=== PATIENT | female | born 1990 | race Caucasian/White ===

== ENCOUNTER 2018-08-18 06:15 | Inpatient (IN) | payer BC, OTHER ==
[2018-08-18] MEDS ORDERED: LIDOCAINE 0.5% (PF) 5 MG/ML (50 ML SDV) SQ PRN (06:38)
[2018-08-18] MEDS ORDERED: TERBUTALINE 1 MG/ML VIAL SQ PRN (06:38)
[2018-08-18] MEDS ORDERED: METHYLERGONOVINE 0.2 MG/ML 1 ML AMP IM PRN (06:38)
[2018-08-18] MEDS ORDERED: CARBOPROST TROMETHAMINE 250 MCG/ML 1 ML AMP IM PRN (06:38)
[2018-08-18] MEDS ORDERED: OXYTOCIN 10 UNIT/ML 1 ML VIAL IM PRN (06:38)
[2018-08-18 06:58] VITALS: BMI 48.2
[2018-08-18] MEDS: LACTATED RINGERS 1,000 ML IV SCH ×3 (07:07→22:40)
[2018-08-18 07:15] LABS: Anisocytosis Slight; Basophils % (A) 0 %; Eosinophils # (A) 0.1 k/uL (0-0.7); Eosinophils % (A) 1 %; HCT 38.4 % (34.0-46.0); HGB 12.3 gm/dL (11.4-16.0); Lymphocytes # (A) 2.3 k/uL (1.0-4.8); Lymphocytes % (A) 22 %; MCH 26.3 pg (25.0-35.0); MCV 82.1 fL (80.0-100.0); Mean Platelet Volume 6.8; Monocytes # (A) 0.5 k/uL (0-1.0); Monocytes % (A) 5 %; Neutrophils # (A) 7.3 k/uL (1.3-7.7); Neutrophils % (A) 70 %; Platelet Count 250 k/uL (150-450); RBC 4.67 m/uL (3.80-5.40); RDW 16.2 % (11.5-15.5); WBC 10.4 k/uL (3.8-10.6)
--- NOTE | 2018-08-18 07:37 | P.HPOB ---
History of Present Illness H&P Date: 08/18/18 This is a 28-year-old white female 2 para 1001 EDC 08/25/2018 at 39 weeks gestation. Patient presents for an induction, planning . She is having irregular uterine contractions. Fetus is been active throughout the . She denies vaginal bleeding or fluid leakage. Past surgical history significant for 2014, low transverse incision, wisdom teeth extracted. Past medical history significant for seasonal ALLERGIES, history of kidney stones, and HSV infections. Current medications Valtrex 500 mg daily, albuterol inhaler as needed, labetalol 100 mg twice daily, vitamin daily. ALLERGIES include codeine, and penicillins to both of which she reports a rash. Family history significant for atrial fibrillation, heart failure, gout, arthritis. Social history patient is , she is a former tobacco smoker, she denies alcohol or drug use or history is significant for blood type A+, rubella status immune. Positive group strep cultures, negative urine culture. HIV testing, urine screen, gonorrhea Chlamydia cultures, VDRL all negative. One-hour Glucola 105. Mild -induced hypertension. Liver enzymes within normal limits. On exam this is a pleasant white female who is 5 foot 1 inch, 255 pounds, blood pressure 126/89. Vital signs are stable and she is afebrile. The general physical exam is within normal limits. The chest is clear in all mejia. Extremities reveal trace edema. Cervix is 3-4 cm dilated, 60-70% effaced, -2 station, vertex presentation, soft and anterior. Artificial amniorrhexis reveals clear fluid. heart rate is consistent with reactive NST. She is having spontaneous contractions approximately every 6 minutes apart. Impression: 39 week intrauterine . History of mild PIH, blood pressure normal. History of previous , planning . Risks and benefits all discussed in detail. Plan: Clindamycin prophylaxis for positive group B strep status. Close maternal and surveillance. Oxytocin per hospital protocol. Anticipate normal spontaneous vaginal delivery, or vaginal after . Review of Systems Constitutional: Reports as per HPI Past Medical History Past Medical History: Asthma Additional Past Medical History / Comment(s): HSV History of Any Multi-Drug Resistant Organisms: None Reported Past Surgical History: Section Additional Past Surgical History / Comment(s): Wisom teeth Past Anesthesia/Blood Transfusion Reactions: No Reported Reaction Past Psychological History: No Psychological Hx Reported Smoking Status: Never smoker Past Alcohol Use History: None Reported Past Drug Use History: None Reported - Past Family History Father Family Medical History: Hypertension Medications and Allergies Home Medications Medication Instructions Recorded Confirmed Type Albuterol Inhaler [Ventolin Hfa 1 inhalation PO ONCE 08/18/18 08/18/18 History Inhaler] Labetalol HCl 100 mg PO BID 08/18/18 08/18/18 History valACYclovir [Valtrex] 1 tab PO ONCE 08/18/18 08/18/18 History Allergies Allergy/AdvReac Type Severity Reaction Status Date / Time penicillin G Allergy Unknown Verified 08/18/18 06:34 Childhood Exam Vital Signs Temp Pulse Resp BP Pulse Ox 08/18/18 06:50 96.5 F L 92 16 126/89 98 Intake and Output 08/17/18 08/18/18 08/18/18 22:59 06:59 14:59 Other: Weight 115.666 kg See dictation under HPI please Results Result Diagrams: 08/18/18 06:53 Abnormal Lab Results - Last 24 Hours (Table) 08/18/18 Range/Units 06:53 RDW 16.2 H (11.5-15.5) % Assessment and Plan Assessment: 39 week intrauterine , previous , history of HSV with no lesions at this time. History of asthma, lung mejia clear. Positive group B strep cultures. Plan: Clindamycin prophylaxis. Oxytocin per hospital protocol. Close maternal and surveillance. All risks and benefits of discussed in detail. Anticipate vaginal delivery. Time with Patient: Greater than 30
[2018-08-18] MEDS ORDERED: CLINDAMYCIN 900 MG in DEXTROSE 5% IN WATER 50 ML IVPB SCH ×2 (08:00)
[2018-08-18] MEDS: BUTORPHANOL 1 MG/ML 1 ML VIAL IV PRN ×2 (10:23→18:41)
[2018-08-18] MEDS ORDERED: diphenhydrAMINE 50 MG/ML 1 ML VIAL IVP PRN ×2 (13:00)
[2018-08-18] MEDS ORDERED: diphenhydrAMINE 50 MG CAP PO PRN (13:00)
[2018-08-18] MEDS ORDERED: OXYTOCIN 20 UNITS/1000 ML NS 1,000 ML IV SCH (13:00)
[2018-08-18] MEDS ORDERED: ZOLPIDEM 5 MG TAB PO PRN (13:00)
[2018-08-18] MEDS ORDERED: ACETAMINOPHEN TAB 325 MG TAB PO PRN (13:00)
[2018-08-18] MEDS ORDERED: SIMETHICONE 80 MG CHEWABLE PO PRN (13:00)
[2018-08-18] MEDS ORDERED: WITCH HAZEL 1 EACH MED..PAD TOPICAL PRN (13:00)
[2018-08-18] MEDS ORDERED: diphenhydrAMINE ELIXIR 25 MG/10 ML CUP PO PRN (13:00)
[2018-08-18] MEDS ORDERED: diphenhydrAMINE 25 MG CAP PO PRN (13:00)
[2018-08-18] MEDS ORDERED: HYDROCORTISONE 2.5% RECTAL CREAM 30 GM TUBE RECTAL PRN (13:00)
[2018-08-18] MEDS ORDERED: BENZOCAINE/MENTHOL SPRAY 1 GM/SPRAY AEROSOL TOPICAL PRN (13:00)
[2018-08-18] MEDS ORDERED: LANOLIN CREAM 5 GM TUBE TOPICAL PRN (13:00)
--- NOTE | 2018-08-18 13:00 | P.PROBDLV ---
Vaginal Delivery Note - . Vaginal Delivery Note: This is a 28-year-old white female 2 para 1001 EDC 08/25/2018 at 39 weeks gestation. Patient's was remarkable for chronic hypertension, excellent blood pressure control on labetalol 100 mg twice daily. Blood type B positive. Rubella status immune. Group B strep cultures positive. Please see admitting H&P for details. She had previous section, low transverse incision and was choosing . All risks and benefits discussed in detail. Artificial amniorrhexis revealed clear fluid. Oxytocin was started and titrated per hospital protocol. Clindamycin 900 mg IV piggyback was given at 0800 hrs. Patient requested Stadol and this was received, 1 mg. She declined the option for epidural. She progressed well through the first stage of labor and was judged be completely dilated at 1218 hrs. Perineal body was prepped and draped in usual sterile fashion. With excellent maternal expulsive efforts the head delivered occiput anterior and restituted accordingly. There was a nuchal cord 1 that was reduced on the perineal body. The right or anterior shoulder was gently and easily delivered from underneath the pubic symphysis at which time the oropharynx, nasopharynx and external nares were all bulb suctioned on the perineal body. Patient was officially delivered of a liveborn male infant at 1230 hours. Umbilical cord was doubly clamped and ligated, he was handed to waiting nurses for evaluation where scores of 9 and 9 at one and 5 minutes respectively were given. He weighed 6 lbs. 12 oz. or 3065 g. Placenta delivered spontaneously, it was inspected and noted to be intact with trivascular cord at 1234 hours. Perineal body was then redraped. Inspection of the cervix, vagina, perineum, periurethral, and perirectal areas revealed a superficial left labial laceration. This was injected with 1% lidocaine and repaired in the usual fashion using 3-0 Vicryl suture for excellent reapproximation. Uterus is then massaged. Total estimated blood loss 300 mL's. All sponge needle and enhancement counts are correct at the end of the procedure. Patient is requesting circumcision for her son. Patient is allowed to begin the bonding express in the LDR.
[2018-08-18] MEDS: IBUPROFEN 600 MG TAB PO PRN (14:27)
[2018-08-18 18:54] LABS: Anisocytosis Slight; Basophils % (A) 0 %; Eosinophils # (A) 0.1 k/uL (0-0.7); Eosinophils % (A) 1 %; HCT 31.5 % (34.0-46.0); Hypochromasia Slight; Lymphocytes # (A) 1.6 k/uL (1.0-4.8); Lymphocytes % (A) 8 %; MCHC 31.4 g/dL (31.0-37.0); MCV 82.9 fL (80.0-100.0); Mean Platelet Volume 7.8; Monocytes # (A) 0.6 k/uL (0-1.0); Monocytes % (A) 3 %; Neutrophils # (A) 17.1 k/uL (1.3-7.7); Neutrophils % (A) 88 %; Platelet Count 298 k/uL (150-450); RDW 16.4 % (11.5-15.5); WBC 19.5 k/uL (3.8-10.6)
[2018-08-18 19:00] LABS: HGB 9.9 gm/dL (11.4-16.0)
--- NOTE | 2018-08-18 19:23 | P.PN ---
Subjective Progress Note Date: 08/18/18 Principal diagnosis: 6 hours , increased vaginal bleeding. Called by nursing staff to assess increased vaginal bleeding. Patient passed several clots the size of baseballs. In addition, she had a near syncopal episode while getting up to the bathroom. Objective - Vital Signs Vital signs: Vital Signs Temp 97.6 F 08/18/18 15:40 Pulse 96 08/18/18 15:40 Resp 16 08/18/18 15:40 BP 125/64 08/18/18 15:40 Pulse Ox 98 08/18/18 06:50 Intake & Output 08/18/18 08/18/18 08/19/18 06:59 18:59 06:59 Output Total 300 Balance -300 Weight 115.666 kg Output: Estimated Blood Loss 300 Other: # Voids 2 - Constitutional General appearance: Present: average body habitus, morbidly obese - EENT Eyes: Present: PERRLA ENT: Present: hearing grossly normal - Respiratory Respiratory: bilateral: CTA - Cardiovascular Rhythm: regular - Gastrointestinal General gastrointestinal: Present: normal bowel sounds - Genitourinary Genitourinary Comment(s): Uterus firm, symmetric, midline, at the umbilicus. No excessive tenderness. No CVA tenderness. In inspecting the perineal body, the previously placed stitches in the left labia are intact. No evidence of hematoma. There is an additional abrasions slightly superior to this, a [id number] suture is placed. Examination of the intrauterine cavity revealed a proximal a 500 mL of clots. The lower uterine segment is palpated and noted to be intact. No retained products of conception are found. - Integumentary Integumentary: Present: normal - Neurologic Neurologic: Present: CNII-XII intact - Musculoskeletal Musculoskeletal: Present: generalized weakness - Psychiatric Psychiatric: Present: A&O x's 3, appropriate affect, intact judgment & insight - Labs CBC & Chem 7: 08/18/18 18:40 Labs: Abnormal Lab Results - Last 24 Hours (Table) 08/18/18 08/18/18 Range/Units 06:53 18:40 WBC 19.5 H (3.8-10.6) k/uL Hgb 9.9 L D (11.4-16.0) gm/dL Hct 31.5 L (34.0-46.0) % RDW 16.2 H 16.4 H (11.5-15.5) % Neutrophils # 17.1 H (1.3-7.7) k/uL Assessment and Plan Assessment: 39 week intrauterine , previous , history of HSV with no lesions at this time. History of asthma, lung mejia clear. Positive group B strep cultures. Plan: Clindamycin prophylaxis. Oxytocin per hospital protocol. Close maternal and surveillance. All risks and benefits of discussed in detail. Antici griffith vaginal delivery. Time with Patient: Greater than 30
[2018-08-18] MEDS: SENNOSIDES-DOCUSATE SODIUM 1 EACH TAB PO SCH (20:18)
--- NOTE | 2018-08-19 07:54 | P.PN ---
Subjective Progress Note Date: 08/19/18 Principal diagnosis: day #1 Slept well. No pain. Bleeding has normalized. No lightheadedness or dizziness. Objective - Vital Signs Vital signs: Vital Signs Temp 98 F 08/19/18 02:30 Pulse 98 08/19/18 02:30 Resp 18 08/19/18 02:30 BP 130/83 08/19/18 02:30 Pulse Ox 98 08/18/18 06:50 Intake & Output 08/18/18 08/19/18 08/19/18 18:59 06:59 18:59 Output Total 300 Balance -300 Output: Estimated Blood Loss 300 Other: # Voids 2 1 - Constitutional General appearance: Present: obese - EENT ENT: Present: hearing grossly normal - Neck Thyroid: bilateral: normal size - Respiratory Respiratory: bilateral: CTA - Cardiovascular Rhythm: regular Heart sounds: normal: S1, S2 - Gastrointestinal General gastrointestinal: Present: normal bowel sounds - Genitourinary Genitourinary Comment(s): Fundus firm, midline, symmetric, 18 week size. Nontender. - Integumentary Integumentary: Present: normal - Neurologic Neurologic: Present: CNII-XII intact - Musculoskeletal Musculoskeletal: Present: gait normal, strength equal bilaterally - Psychiatric Psychiatric: Present: A&O x's 3, appropriate affect, intact judgment & insight - Labs CBC & Chem 7: 08/18/18 18:40 Labs: Abnormal Lab Results - Last 24 Hours (Table) 08/18/18 Range/Units 18:40 WBC 19.5 H (3.8-10.6) k/uL Hgb 9.9 L D (11.4-16.0) gm/dL Hct 31.5 L (34.0-46.0) % RDW 16.4 H (11.5-15.5) % Neutrophils # 17.1 H (1.3-7.7) k/uL Assessment and Plan Plan: Begin ferrous sulfate twice daily. Continue observation through the day. Circumcision now. Likely discharge home tomorrow. Time with Patient: Less than 30
[2018-08-19] MEDS: SENNOSIDES-DOCUSATE SODIUM 1 EACH TAB PO SCH ×2 (09:46→20:05)
[2018-08-19] MEDS: FERROUS SULFATE 325 MG TAB PO SCH (09:46)
[2018-08-19] MEDS: IBUPROFEN 600 MG TAB PO PRN ×2 (11:14→22:42)
[2018-08-19] MEDS: OXYTOCIN 30 UNITS/500 ML NS 30 UNIT in SALINE 1 500ML.BAG IV SCH (19:56)
[2018-08-19] MEDS: LACTATED RINGERS 1,000 ML IV SCH ×4 (19:56→19:58)
[2018-08-19 23:50] VITALS: TEMP 97.4
[2018-08-20 07:43] VITALS: BP 126/60; PULSE 97; RESP 16
[2018-08-20] MEDS: FERROUS SULFATE 325 MG TAB PO SCH (08:27)
--- NOTE | 2018-08-20 09:39 | P.DS ---
Providers Date of admission: 08/18/18 06:15 Expected date of discharge: 08/20/18 Attending physician: Amy Joshi Primary care physician: Loc Sharma - Discharge Diagnosis(es) (1) 39 weeks gestation of Current Visit: Yes Status: Acute (2) History of Current Visit: Yes Status: Acute (3) Vaginal delivery following previous caesarean section Current Visit: Yes Status: Acute (4) induced hypertension Current Visit: Yes Status: Acute (5) Obstetric labial laceration, delivered, current hospitalization Current Visit: Yes Status: Acute (6) Uterine atony Current Visit: Yes Status: Acute Hospital Course: This is a 28-year-old 2 now para 2 woman who was admitted at 39 weeks gestation for induction of labor with a favorable cervix. Should a history of -induced hypertension and was on labetalol 100 mg twice a day. She had a history of a previous low transverse section and didn't desire trial of labor after . She underwent a Pitocin induction of labor with artificial rupture of membranes. She received group B strep prophylactic antibiotics. She went on to the delivery liveborn male infant over an intact perineum with labial laceration. 's weight was 6 lbs. 12 oz., Apgars of 9 at 1 minute and 9 at 5 minutes. Proximally 6 hours following delivery the delivery the patient did have some increase in vaginal bleeding with large cl ots. She became tachycardic and had a near syncopal episode. Evaluation at the bedside at that time revealed additional labial laceration which was repaired at the bedside as well as evacuation of additional blood and clots from the uterus. The patient received Pitocin and Methergine at this time. Her hemoglobin was 9.9 on day #1 and her tachycardia did resolve. By day #1 she was ambulating and voiding without difficulty. Her vital signs were more stable. She complained of some mild soreness but otherwise her pain was well- controlled. By day #2 she continued to do well. She had no significant vaginal bleeding. Her vital signs were stable. The was not discharge however secondary to elevated bilirubin levels. The patient was discharged home on day #2 with routine instructions for care and follow-up. She is started on ferrous sulfate twice a day. Her labetalol was discontinued. Procedures: Vaginal after section Repair of labial laceration and evacuation of clots Patient Condition at Discharge: Good Plan - Discharge Summary New Discharge Prescriptions: New Ferrous Sulfate [Iron (65 MG Elemental)] 325 mg PO BID-W/MEALS #60 tab Ibuprofen [Motrin] 600 mg PO Q6HR PRN tab PRN Reason: Mild Pain Or Fever >= 100.5 Sennosides-Docusate Sodium [Senokot-S] 2 each PO BID@0800,2000 tab Continue Albuterol Inhaler [Ventolin Hfa Inhaler] 1 inhalation PO ONCE No Action valACYclovir [Valtrex] 1 tab PO ONCE Labetalol HCl 100 mg PO BID Discharge Medication List Albuterol Inhaler [Ventolin Hfa Inhaler] 1 inhalation PO ONCE 08/18/18 [History] Labetalol HCl 100 mg PO BID 08/18/18 [History] valACYclovir [Valtrex] 1 tab PO ONCE 08/18/18 [History] Ferrous Sulfate [Iron (65 MG Elemental)] 325 mg PO BID-W/MEALS #60 tab 08/20/18 [Rx] Ibuprofen [Motrin] 600 mg PO Q6HR PRN tab 08/20/18 [Rx] Sennosides-Docusate Sodium [Senokot-S] 2 each PO BID@0800,1999 tab 08/20/18 [Rx] Follow up Appointment(s)/Referral(s): Amy Joshi MD [STAFF PHYSICIAN] - 2 Weeks Activity/Diet/Wound Care/Special Instructions: Follow-up in the office in 6 weeks . Call with any concerning signs or symptoms including heavy vaginal bleeding, severe abdominal pain, fever greater than 101, swelling or redness of the lower extremities, foul vaginal discharge, or signs of depression. Nothing in the vagina for 6 weeks after delivery, specifically no intercourse. Discharge Disposition: HOME SELF-CARE
== END 2018-08-20 13:41 | disposition home or self-care (01) | DRG 807 ==
LOC: 4FBP 06:15
PROVIDERS: ADMIT Obstetrics & Gynecology; ATTEND Obstetrics & Gynecology
PROC: 10E0XZZ Delivery of Products of Conception, External Approach (ICD-10-PCS; principal; 2018-08-18)
PROC: 0HQ9XZZ Repair Perineum Skin, External Approach (ICD-10-PCS; 2018-08-18)
PROC: 3E033VJ Introduction of Other Hormone into Peripheral Vein, Percutaneous Approach (ICD-10-PCS; 2018-08-18)
PROC: 10907ZC Drainage of Amniotic Fluid, Therapeutic from Products of Conception, Via Natural or Artificial Opening (ICD-10-PCS; 2018-08-18)
DX: O13.4 Gestational [pregnancy-induced] hypertension without significant proteinuria, complicating childbirth (principal); Z37.0 Single live birth; E66.01 Morbid (severe) obesity due to excess calories; O72.1 Other immediate postpartum hemorrhage; O34.211 Maternal care for low transverse scar from previous cesarean delivery; O99.214 Obesity complicating childbirth; J45.909 Unspecified asthma, uncomplicated; O99.52 Diseases of the respiratory system complicating childbirth; O69.81X0 Labor and delivery complicated by cord around neck, without compression, not applicable or unspecified; O70.0 First degree perineal laceration during delivery; Z3A.39 39 weeks gestation of pregnancy; O99.824 Streptococcus B carrier state complicating childbirth; N85.8 Other specified noninflammatory disorders of uterus; Z79.899 Other long term (current) drug therapy; Z86.19 Personal history of other infectious and parasitic diseases; Z87.442 Personal history of urinary calculi; Z87.891 Personal history of nicotine dependence; Z91.048 Other nonmedicinal substance allergy status; Z88.5 Allergy status to narcotic agent; Z88.0 Allergy status to penicillin; Z82.49 Family history of ischemic heart disease and other diseases of the circulatory system; Z83.49 Family history of other endocrine, nutritional and metabolic diseases; Z82.61 Family history of arthritis
CPT/HCPCS: 85025; 86850; 86900; 86901